=== PATIENT | female | born 1965 | race Caucasian/White ===

== ENCOUNTER → 2018-09-09 | Outpatient (CLI) | payer OTHER | LOC: LAB 16:17 | PROVIDERS: ATTEND Family Medicine | DX: Z01.818 Encounter for other preprocedural examination (principal) | CPT/HCPCS: 81001; 87077; 87088; 87186 ==

== ENCOUNTER → 2018-09-17 | Outpatient (CLI) | payer OTHER | LOC: LAB 12:23 | PROVIDERS: ATTEND Family Medicine | DX: Z01.812 Encounter for preprocedural laboratory examination (principal) | CPT/HCPCS: 81001 ==

== ENCOUNTER → 2018-10-01 | Outpatient (CLI) | payer OTHER ==
[~2018-10-01] MED LIST: REGADENOSON 0.4 MG/5 ML SYR ONE
--- NOTE | 2018-10-01 12:41 | RADIOLOGY IMAGING REPORT ---
FACILITY: [facility] PATIENT NAME: Jennifer Gatica : 1965 MR: [id number] V: [id number] EXAM DATE: ORDERING PHYSICIAN: SOLANGE SEBASTIAN TECHNOLOGIST: Location: [facility] [place] Patient: Jennifer Gatica : 1965 Visit/Account:[id number] Date of Sevice: 10/01/2018 REGADENOSON (LEXISCAN) MYOCARDIAL PERFUSION IMAGING. EXAMINATION: Single isotope SPECT imaging with regadenoson infusion and gated SPECT imaging. DATE OF EXAMINATION: October 01, 2018. REQUESTING PHYSICIAN:JAZ INDICATION: Abnormal EKG PROCEDURE: After informed consent the patient received an intravenous injection of Tc-99m sestamibi followed at an appropriate time interval by rest imaging. The patient then subsequently received an intravenous infusion of 0.4 mg of regadenoson per protocol without complication. Resting heart rate was 60 bpm with a peak heart rate of 100 bpm. Blood pressure at rest was 132/94 and following infus ion was 132/70 . Baseline EKG demonstrates sinus rhythm. There were no EKG changes of ischemia foll owing infusion. Non-specific symptoms were reported. The patient then received an intravenous injec tion of Tc-99m sestamibi followed by stress imaging. DOSE of Tc-99m sestamibi (mCi): REST: 12.7 STRESS: 30.5 RAW DATA: Examination of the summed raw data revealed a excellent quality study. MYOCARDIAL PERFUSION: The tomographic images demonstrate normal myocardial perfusion without evidenc e of myocardial ischemia or infarct. GATED IMAGES: The gated images demonstrate normal LV systolic performance and wall motion with LVEF 69%. IMPRESSION: 1. Nondiagnostic ECG portion of Lexiscan stress test. 2. Normal myocardial perfusion study without evidence of myocardial ischemia or infarct 3. Normal LV systolic performance and wall motion with LVEF 69% Report Dictated By: Raheem Pierre at 10/01/2018 12:33 PM Report E-Signed By: Raheem Pierre at 10/01/2018 12:36 PM [id number]
== END ==
LOC: RESP 06:43
PROVIDERS: ATTEND Family Medicine
DX: R94.31 Abnormal electrocardiogram [ECG] [EKG] (principal)
CPT/HCPCS: 78452; 93017; A9500; J2785

== ENCOUNTER 2018-10-03 13:17 | Outpatient (RCR) | payer OTHER ==
[2018-10-06] MEDS ORDERED: TRAM-420 PO (12:35)
[2018-10-06] MEDS ORDERED: KET10 PO (12:35)
== END 2018-10-08 18:00 | disposition home or self-care (01) ==
LOC: US 13:17
PROVIDERS: ATTEND Family Medicine
DX: I36.1 Nonrheumatic tricuspid (valve) insufficiency (principal)
CPT/HCPCS: 93306

== ENCOUNTER 2018-10-06 10:56 | Emergency (ER) | payer OTHER ==
--- NOTE | 2018-10-06 11:06 | ER Report ---
History and Physical Time Seen By MD: 11:06 HPI/ROS CHIEF COMPLAINT: Left hip pain HISTORY OF PRESENT ILLNESS: 53-year-old female patient presents to emergency room with complaint of left hip pain. Patient states that she has been having pain since yesterday. She states that she was walking and throughout the day she was walking she had worsening pain. She states when she went to bed last night she felt that the pain continued that she would come into the emergency room for evaluation. Patient states she denies any trauma, she states she did not fall. She states she had no recent injury. Patient states she does have a known history of a torn labrum in the left hip. She states that [facility] taking care of. However she is not had a follow- up appointment which should've been scheduled by this point. She did call the OR and plans on calling them tomorrow REVIEW OF SYSTEMS: Respiratory: No cough, no dyspnea. Cardiovascular: No chest pain, no palpitations. Gastrointestinal: No vomiting, no abdominal pain. Musculoskeletal: As noted above Allergies: Uncoded Allergies: opiates (Adverse Reaction, Intermediate, swelling and rashes with repeated doses, 10/06/18) Home Meds Active Scripts Tramadol Hcl (TRAMADOL HCL) 50 Mg Tablet, 50 MG PO Q4-6H PRN for PAIN, #20 TAB Prov:GEORGIANA SUTTON 10/06/18 Ketorolac Tromethamine (KETOROLAC TROMETHAMINE) 10 Mg Tab, 10 MG PO Q6H, #20 TAB Prov:GEORGIANA SUTTONP 10/06/18 Past Medical/Surgical History Patient has a past medical history of kidney stones, reflux, torn labrum, hypothyroidism. Patient has a surgical history of appendectomy, lithotripsy 3, hysterectomy, right shoulder surgery, sinus surgery 4, multiple foot surgery. Reviewed Nurses Notes: Yes Constitutional Vital Sign - Last 24 Hours 10/06/18 10/06/18 10/06/18 10/06/18 11:00 11:02 11:15 12:00 Temp 98.8 Pulse 79 Resp 20 B/P (MAP) 142/102 142/104 (117) 136/79 (98) 144/85 (104) Pulse Ox 96 O2 Delivery Room Air Physical Exam General Appearance: The patient is alert, has no immediate need for airway protection and no current signs of toxicity. Respiratory: Chest is non tender, lungs are clear to auscultation. Cardiac: regular rate and rhythm Gastrointestinal: Abdomen is soft and non tender, no masses, bowel sounds normal. Musculoskeletal: Neck: Neck is supple and non tender. Extremities have full range of motion and are non tender. Patient has significant tenderness of the left hip, there is no bruising, no swelling, no erythema. Skin: No rashes or lesions. DIFFERENTIAL DIAGNOSIS: After history and physical exam differential diagnosis was considered for arthritis, fracture, worsening of torn labrum. Medical Decision Making Data Points Result Diagram: 10/06/18 1132 10/06/18 1132 Laboratory Hematology Test 10/06/18 11:32 Red Blood Count 4.89 M/uL (4.17-5.56) Mean Corpuscular Volume 87.4 fL (80.0-96.0) Mean Corpuscular Hemoglobin 29.5 pg (26.0-33.0) Mean Corpuscular Hemoglobin Concent 33.7 g/dL (32.0-36.0) Red Cell Distribution Width 13.9 % (11.5-14.5) Mean Platelet Volume 7.6 fL (7.2-11.1) Neutrophils (%) (Auto) 59.7 % (39.4-72.5) Lymphocytes (%) (Auto) 28.7 % (17.6-49.6) Monocytes (%) (Auto) 8.4 % (4.1-12.4) Eosinophils (%) (Auto) 2.5 % (0.4-6.7) Basophils (%) (Auto) 0.7 % (0.3-1.4) Nucleated RBC Relative Count (auto) 0.0 /100WBC Neutrophils # (Auto) 4.6 K/uL (2.0-7.4) Lymphocytes # (Auto) 2.2 K/uL (1.3-3.6) Monocytes # (Auto) 0.6 K/uL (0.3-1.0) Eosinophils # (Auto) 0.2 K/uL (0.0-0.5) Basophils # (Auto) 0.1 K/uL (0.0-0.1) Nucleated RBC Absolute Count (auto) 0.00 K/uL Erythrocyte Sedimentation Rate 15 mm/HOUR (0-30) Sodium Level 141 mmol/L (137-145) Potassium Level 3.7 mmol/L (3.5-5.0) Chloride Level 111 mmol/L (98-107) Carbon Dioxide Level 23 mmol/L (22-31) Blood Urea Nitrogen 14 mg/dl (7-18) Creatinine 0.90 mg/dl (0.52-1.04) Glomerular Filtration Rate Calc > 60.0 Random Glucose 83 mg/dl (75-110) Calcium Level 8.6 mg/dl (8.4-10.2) Total Bilirubin 1.1 mg/dl (0.2-1.3) Aspartate Amino Transf (AST/SGOT) 31 U/L (0-35) Alanine Aminotransferase (ALT/SGPT) 31 U/L (0-56) Alkaline Phosphatase 107 U/L (0-126) C-Reactive Protein 3.9 mg/dl (<1.0) Total Protein 6.8 g/dl (6.3-8.2) Albumin 3.9 g/dl (3.5-5.0) Chemistry Test 10/06/18 11:32 White Blood Count 7.7 k/uL (4.5-11.0) Red Blood Count 4.89 M/uL (4.17-5.56) Hemoglobin 14.4 g/dL (12.0-16.0) Hematocrit 42.8 % (34.0-47.0) Mean Corpuscular Volume 87.4 fL (80.0-96.0) Mean Corpuscular Hemoglobin 29.5 pg (26.0-33.0) Mean Corpuscular Hemoglobin Concent 33.7 g/dL (32.0-36.0) Red Cell Distribution Width 13.9 % (11.5-14.5) Platelet Count 289 K/uL (150-450) Mean Platelet Volume 7.6 fL (7.2-11.1) Neutrophils (%) (Auto) 59.7 % (39.4-72.5) Lymphocytes (%) (Auto) 28.7 % (17.6-49.6) Monocytes (%) (Auto) 8.4 % (4.1-12.4) Eosinophils (%) (Auto) 2.5 % (0.4-6.7) Basophils (%) (Auto) 0.7 % (0.3-1.4) Nucleated RBC Relative Count (auto) 0.0 /100WBC Neutrophils # (Auto) 4.6 K/uL (2.0-7.4) Lymphocytes # (Auto) 2.2 K/uL (1.3-3.6) Monocytes # (Auto) 0.6 K/uL (0.3-1.0) Eosinophils # (Auto) 0.2 K/uL (0.0-0.5) Basophils # (Auto) 0.1 K/uL (0.0-0.1) Nucleated RBC Absolute Count (auto) 0.00 K/uL Erythrocyte Sedimentation Rate 15 mm/HOUR (0-30) Glomerular Filtration Rate Calc > 60.0 Calcium Level 8.6 mg/dl (8.4-10.2) Total Bilirubin 1.1 mg/dl (0.2-1.3) Aspartate Amino Transf (AST/SGOT) 31 U/L (0-35) Alanine Aminotransferase (ALT/SGPT) 31 U/L (0-56) Alkaline Phosphatase 107 U/L (0-126) C-Reactive Protein 3.9 mg/dl (<1.0) Total Protein 6.8 g/dl (6.3-8.2) Albumin 3.9 g/dl (3.5-5.0) EKG/Imaging Imaging HIP LEFT History: Left hip pain. Comparison study: None. Findings: There is no fracture involving the pelvis or hips. The hip joints and sacroiliac joints are unremarkable. IMPRESSION: Normal examination of the pelvis and left hip. Report Dictated By: Luiz Dunne MD at 10/06/2018 12:05 PM Report E-Signed By: Luiz Dunne MD at 10/06/2018 12:05 PM ED Course/Re-evaluation ED Course Patient was admitted on exam room, history and physical were obtained. Differential diagnoses were considered. On examination lungs are clear, heart is regular, abdomen was soft nontender. Patient did have tenderness to the left hip. X-rays done of the left hip which showed no acute findings. I discussed the findings with the patient. Is my belief this time that she is likely having pain secondary to her labrum tear which she is aware of. Patient did request a MRI of her hip. At this time I do not believe that is necessary, as this is not an acute injury. We will go ahead and treat her with Toradol and tramadol for pain. We will have her follow-up with her primary care provider. They can order the MRI and arrange for her to follow-up with orthopedics. Patient was concerned about getting up and moving around as she is unable to use crutches secondary to her shoulder pain. We did get the patient up using a walker. She was able to tolerate ambulation well. Patient is return to the emergency room if condition worsens. She is to follow-up with her primary care provider in the next week. Patient verbalized understanding and agreement with plan. Decision to Disposition Date: October 06, 2018 Decision to Disposition Time: 12:41 Depart Departure Latest Vital Signs Vital Signs Date Time Temp Pulse Resp B/P (MAP) Pulse Ox O2 Delivery O2 Flow Rate FiO2 10/06/18 12:00 144/85 (104) 10/06/18 11:00 98.8 79 20 96 Room Air Impression: Primary Impression: Left hip pain Condition: Improved Disposition: HOME OR SELF-CARE Referrals: SOLANGE SEBASTIAN MD (PCP) New Scripts Tramadol Hcl (TRAMADOL HCL) 50 Mg Tablet 50 MG PO Q4-6H PRN for PAIN, #20 TAB Prov: GEORGIANA SUTTON 10/06/18 Ketorolac Tromethamine (KETOROLAC TROMETHAMINE) 10 Mg Tab 10 MG PO Q6H, #20 TAB Prov: GEORGIANA SUTTON 10/06/18 Patient Instructions: Hip Pain (ED) Additional Instructions: Limit activity by pain. Use the walker to help with moving around. Get plenty of rest. You can apply heat and ice to the hip. Take the medication as prescribed. [facility]. Return to the ER if condition worsens. GEORGIANA SUTTON October 06, 2018 11:06
[2018-10-06] MEDS ORDERED: KETOROLAC 30 MG/ML VIAL IVP ONE (11:25)
[2018-10-06] MEDS ORDERED: NS(*) 0.9% 1000 ML BAG 1,000 ML IV ONE (11:25)
[2018-10-06 11:41] LABS: PLATELET COUNT, AUTOMATED 289 K/uL (150-450)
[2018-10-06 12:00] VITALS: BP 144/85
--- NOTE | 2018-10-06 12:10 | RADIOLOGY IMAGING REPORT ---
FACILITY: PATIENT NAME: Jennifer Gatica : 1965 MR: [id number] V: [id number] EXAM DATE: ORDERING PHYSICIAN: GEORGIANA SUTTON TECHNOLOGIST: Location: [facility] [place] Patient: Jennifer Gatica : 1965 Visit/Account:[id number] Date of Sevice: 10/06/2018 HIP LEFT History: Left hip pain. Comparison study: None. Findings: There is no fracture involving the pelvis or hips. The hip joints and sacroiliac joints are unremarkable. IMPRESSION: Normal examination of the pelvis and left hip. Report Dictated By: Luiz Dunne MD at 10/06/2018 12:05 PM Report E-Signed By: Luiz Dunne MD at 10/06/2018 12:05 PM WSN:[id number]
[2018-10-06] MEDS ORDERED: KET10 PO (12:35)
[2018-10-06] MEDS ORDERED: TRAM-420 PO (12:35)
== END 2018-10-06 13:00 | disposition home or self-care (01) ==
LOC: ER 11:11
DX: M25.552 Pain in left hip (principal)
CPT/HCPCS: 73502; 85025; 85651; 86140; 96361; 96374; 99284; J1885; J7030; 82040; 82247; 82310; 82374; 82435; 82565; 82947; 84075; 84132; 84155; 84295; 84450; 84460; 84520; 99283

== ENCOUNTER → 2018-10-15 | Outpatient (CLI) | payer OTHER ==
[~2018-10-15] MED LIST changes: +KET10 PO; -REGADENOSON 0.4 MG/5 ML SYR ONE; +TRAM-420 PO
--- NOTE | 2018-10-15 10:25 | RADIOLOGY IMAGING REPORT ---
FACILITY: [facility] PATIENT NAME: Jennifer Gatica : 1965 MR: [id number] V: [id number] EXAM DATE: ORDERING PHYSICIAN: SOLANGE SEBASTIAN TECHNOLOGIST: Location: [facility] Patient: Jennifer Gatica : 1965 Visit/Account:[id number] Date of Sevice: 10/15/2018 MRI pelvis and left hip Indication: Hip pain. Comparison: Plain films 10/06/2018 were reviewed. Technique: Multiplanar, multisequence MRI examination is performed of the pelvis and left hip without contrast. Findings: There is abnormal marrow edema identified within the proximal left femur. This edema is seen within t he greater trochanter most pronounced posteriorly. No discrete fracture line is seen. Edema appears m ost intense adjacent to the left gluteus medius insertion on the greater trochanter. The insertion de monstrates minimal tendinopathy without evidence of focal tearing. This may be stress related and rel ated to overuse. Clinical correlation is necessary. Gluteus minimus insertion is intact. There is no evidence to suggest insertional tearing. No greater trochanteric bursitis. The marrow pattern of the proximal left femur is otherwise normal. The marrow pattern of the right femur is normal. The marrow pattern of the bony pelvis and of the sac rum is normal. Mild degenerative disc disease involves the low lumbar spine which is incompletely falguni luated. On the larger [id number] images, the hip joints are symmetric from right to left. On the smaller f [id number] images of the left hip, there is a focal undersurface tear of the acetabular labrum at t he junction of the anterior and superolateral labrum. No para labral cyst is seen. Articular cartilag e surfaces are maintained. There is normal offset at the femoral head and neck junction. The right gluteal insertions are intact with minimal tendinopathy. No evidence of tear. The bilateral common hamstring tendon origins, short adductors and iliopsoas insertions are intact. There has been previous hysterectomy. No free pelvic fluid. IMPRESSION: 1. Abnormal marrow edema within the greater trochanter of the left proximal femur without fracture li ne. This is most pronounced adjacent to the gluteus medius insertion which demonstrates minimal tendi nopathy. In the appropriate setting, this may reflect stress reaction and overuse. Correlate clinical ly. Alternatively, if there has been a recent fall, a bone contusion is an additional consideration. 2. Focal undersurface tear of the left hip anterior acetabular labrum at the junction with the supero lateral labrum. No para labral cyst. 3. Mild degenerative disc disease involving the low lumbar spine which is incompletely evaluated. Report Dictated By: Juan Arizmendi at 10/15/2018 10:08 AM Report E-Signed By: Juan Arizmendi at 10/15/2018 10:21 AM WSN:[id number]
== END ==
LOC: MRI 00:48
PROVIDERS: ATTEND Family Medicine
DX: M25.552 Pain in left hip (principal)

== ENCOUNTER 2018-11-01 04:55 | Emergency (ER) | payer OTHER ==
--- NOTE | 2018-11-01 04:57 | ER Report ---
History and Physical Time Seen By MD: 04:57 HPI/ROS CHIEF COMPLAINT: Left shoulder pain and skin excoriation HISTORY OF PRESENT ILLNESS: Patient is a 53-year-old female here with complaints of left shoulder pain, pruritus, skin excoriation from exposure to postsurgical tape and dressing after a rotator cuff repair. Patient reports that she was developing intense pruritus, burning searing pain prompting evaluation this morning. Upon removal of the dressing, it appears that the superficial layers of skin had become excoriated, sloughed off. Patient reports intense pruritus, postsurgical sutures appear intact and not infected at time of evaluation. Patient is neurovascularly intact in the distal extremity. Patient is hemodynamically stable, afebrile at time of evaluation. REVIEW OF SYSTEMS: Constitutional: No fever, no chills. Eyes: No discharge. ENT: No sore throat. Cardiovascular: No chest pain, no palpitations. Respiratory: No cough, no shortness of breath. Gastrointestinal: No abdominal pain, no vomiting. Genitourinary: No hematuria. Musculoskeletal: Left postop shoulder pain Skin: Pruritic, excoriated skin surrounding surgical site Neurological: No headache. Allergies: Uncoded Allergies: opiates (Adverse Reaction, Intermediate, swelling and rashes with repeated doses, 10/06/18) Home Meds Active Scripts Tramadol Hcl (TRAMADOL HCL) 50 Mg Tablet, 50 MG PO Q4-6H PRN for PAIN, #20 TAB Prov:GEORGIANA SUTTON [facility] 10/06/18 Ketorolac Tromethamine (KETOROLAC TROMETHAMINE) 10 Mg Tab, 10 MG PO Q6H, #20 TAB Prov:GEORGIANA SUTTON [facility] 10/06/18 Constitutional Vital Sign - Last 24 Hours 11/01/18 05:03 Temp 97.9 Pulse 67 Resp 16 B/P (MAP) 182/100 Pulse Ox 91 O2 Delivery Room Air Physical Exam General Appearance: The patient is alert, has no immediate need for airway protection and no signs of toxicity. Uncomfortable appearing Eyes: Pupils equal and round no pallor or injection. ENT, Mouth: Mucous membranes are moist. Respiratory: There are no retractions, lungs are clear to auscultation. Cardiovascular: Regular rate and rhythm. Gastrointestinal: Abdomen is soft and non tender, no masses, bowel sounds normal. Neurological: No focal neurological deficits on examination Skin: Patches of excoriated skin at the postsurgical site where patient had contact with postsurgical dressing and tape Musculoskeletal: Neck is supple non tender. Tenderness on range of motion of the left shoulder postoperatively DIFFERENTIAL DIAGNOSIS: After history and physical exam differential diagnosis was considered for contact dermatitis, allergic reaction, cellulitis Medical Decision Making ED Course/Re-evaluation ED Course Patient is a 53-year-old female here with complaints of postoperative pain, excoriated skin where the patient and contact with dressings and tape postoperatively. Surgical site appears noninfected with no signs of drainage or significant erythema. Patient also complained of significant sunburn to the face after being outside yesterday. Patient was placed on prophylactic Keflex due to skin excoriations softening, Atarax for pruritus, Toradol for anti-inflammatory and pain control. Patient reports that she will call orthopedics later this morning and she is provided scripts for the above. Return precautions provided. Patient was hemodynamically stable throughout course. Decision to Disposition Date: Nov 01, 2018 Decision to Disposition Time: 05:39 Depart Departure Latest Vital Signs Vital Signs Date Time Temp Pulse Resp B/P (MAP) Pulse Ox O2 Delivery O2 Flow Rate FiO2 11/01/18 05:03 97.9 67 16 182/100 91 Room Air Impression: Primary Impression: Contact dermatitis Condition: Improved Disposition: HOME OR SELF-CARE New Scripts Hydroxyzine Hcl (HYDROXYZINE HCL) 25 Mg Tablet 25 MG PO Q8-12H PRN for ITCHING, #20 TAB Prov: BRISSA SCHWAB DO 11/01/18 Cephalexin 500 Mg Tab (KEFLEX 500 MG TAB) 500 Mg Tablet 500 MG PO Q6H for 7 Days, #28 TAB Prov: BRISSA SCHWAB DO 11/01/18 Ketorolac Tromethamine (KETOROLAC TROMETHAMINE) 10 Mg Tab 10 MG PO Q6H PRN for PAIN, #12 TAB 0 Refills Prov: BRISSA SCHWAB DO 11/01/18 Patient Instructions: Contact Dermatitis (ED) Additional Instructions: Please drink plenty of water to maintain hydration status. You may take 1 tablet of Toradol every 8-12 hours as needed for pain control, Keflex one tablet 4 t imes a day for 7 days for prophylactic antimicrobial coverage, Atarax 1 tablet every 8-12 hours as needed for itching. Please contact your orthopedic doctor in the next 24 hours to discuss further evaluation and care. Please return promptly if you develop worsening pain, drainage, fevers, numbness, motor weakness. BRISSA SCHWAB DO Nov 01, 2018 04:57
[2018-11-01] MEDS ORDERED: hydrOXYzine 25 MG TAB PO ONE (05:25)
[2018-11-01] MEDS ORDERED: CEPHALEXIN MONO 500 MG CAP PO ONE (05:25)
[2018-11-01] MEDS ORDERED: KETOROLAC 60 MG/2 ML VIAL IM ONE (05:25)
[2018-11-01] MEDS ORDERED: CEPH500T7 PO (05:43)
[2018-11-01] MEDS ORDERED: KET10 PO (05:43)
[2018-11-01] MEDS ORDERED: HYDR-4225 PO (05:43)
[2018-11-01 06:00] VITALS: BP 140/88
== END 2018-11-01 06:18 | disposition home or self-care (01) ==
LOC: ER 05:18
DX: L25.9 Unspecified contact dermatitis, unspecified cause (principal)
CPT/HCPCS: 96372; 99283; J1885